=== PATIENT | male | born 1995 | race Caucasian/White ===

== ENCOUNTER 2023-07-11 10:23 | Outpatient (CLI) | payer OTHER, SELFPAY ==
[2023-07-11 15:37] LABS: Hepatitis B Surface Antigen Non-Reactive (Nonreactive); Hepatitis C Virus Antibody Non-Reactive (Nonreactive)
[2023-07-11 16:01] LABS: HIV 1 & 2 Antibody Non-Reactive (Non-Reactiv); HIV 1 & 2 Antigen Non-Reactive (Non-Reactiv)
== END 2023-07-11 10:24 | disposition home or self-care (01) ==
PROVIDERS: Family Provider Nurse Practitioner; Visit Provider Family Medicine
DX: S69.81XA Other specified injuries of right wrist, hand and finger(s), initial encounter (principal); W46.1XXA Contact with contaminated hypodermic needle, initial encounter
CPT/HCPCS: 86803; 87340; 87806

== ENCOUNTER 2024-11-03 14:10 | Outpatient (CLI) | payer OTHER, SELFPAY ==
[2024-11-03 17:36] LABS: HIV 1 & 2 Antigen Non-Reactive (Non-Reactiv)
[2024-11-03 20:16] LABS: Hepatitis B Surface Antigen Non-Reactive (Nonreactive)
== END 2024-11-03 14:11 | disposition home or self-care (01) ==
PROVIDERS: Visit Provider Family Medicine
DX: Z01.89 Encounter for other specified special examinations (principal)
CPT/HCPCS: 86706; 86803; 87340; 87806